=== PATIENT | female | born 1975 | race Hispanic/Latino ===

== ENCOUNTER 2019-08-29 15:06 | Emergency (ER) | payer SELFPAY ==
[2019-08-29] MEDS ORDERED: MORPHINE 4 MG/ML SYR ONE (15:42)
[2019-08-29] MEDS ORDERED: NA CHLORIDE 0.9% 1,000 ML ONE (15:42)
[2019-08-29] MEDS ORDERED: ONDANSETRON 4 MG/2 ML VIAL ONE (15:42)
[2019-08-29 16:00] LABS: Absolute Lymphocytes (CBC) 2.3 K/uL (0.7-4.9); Basophils % 0.4 % (0-1.3); Hematocrit 40.4 % (36.0-45.0); Lymphocytes % 18.6 % (15.3-44.8); MPV 8.2 fL (7.6-11.3); RBC Red Blood Cell Count 4.22 M/uL (3.86-4.86)
[2019-08-29 16:12] LABS: Urine Blood 1+ (NEG); Urine Glucose NEGATIVE (NEG); Urine Protein 2+ (NEG); Urine Specific Gravity >1.030 (1.005-1.030)
[2019-08-29 16:12] LABS: Potassium 3.5 mmol/L (3.5-5.1)
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
[2019-08-29] MEDS ORDERED: CYCLOBENZAPRINE 10 MG TAB ONE (17:53)
[2019-08-29] MEDS ORDERED: KETOROLAC 30 MG/ML INJ ONE (17:53)
[2019-08-29 18:22] VITALS: BP 139/79; TEMP 98.6; O2SAT 97
== END 2019-08-29 18:14 | disposition home or self-care (01) ==
LOC: ER 15:06
DX: S16.1XXA Strain of muscle, fascia and tendon at neck level, initial encounter (principal); S20.212A Contusion of left front wall of thorax, initial encounter; Y04.2XXA Assault by strike against or bumped into by another person, initial encounter; Y93.9 Activity, unspecified; Y92.9 Unspecified place or not applicable; F17.210 Nicotine dependence, cigarettes, uncomplicated
CPT/HCPCS: 36415; 70450; 70486; 71260; 72125; 74177; 76377; 80048; 81003; 81025; 85025; 96374; 96375; 99284; J2405; J7030; Q9967

== ENCOUNTER 2019-09-04 06:47 | Emergency (ER) | payer SELFPAY ==
[2019-09-04] MEDS ORDERED: IBUPROFEN 400 MG TAB ONE (08:26)
[2019-09-04] MEDS ORDERED: IBUPROFEN 200 MG TAB PO ONE (08:26)
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
--- NOTE | 2019-09-04 08:57 | RAD REPORT ---
EXAM DESCRIPTION: Shoulder Right 2 View - 09/04/2019 8:33 am CLINICAL HISTORY: PAIN COMPARISON: No comparisons TECHNIQUE: Internal and external rotation views of the right shoulder were obtained. FINDINGS: There is no fracture or dislocation. No AC joint separation. There is a minimal inferiorl y directed spur off of the head of the clavicle. Acromial humeral joint space still within normal armando its. No abnormal soft tissue calcification or suspicious soft tissue finding. Scapula and upper ribca ge unremarkable. IMPRESSION: Negative two-view right shoulder examination for acute finding. Minimal spur projects from the inferior margin of the clavicle at the AC joint.
--- NOTE | 2019-09-04 08:58 | RAD REPORT ---
EXAM DESCRIPTION: RAD - Chest Single View - 09/04/2019 8:33 am CLINICAL HISTORY: CHEST PAIN, right shoulder pain COMPARISON: None TECHNIQUE: AP portable chest image was obtained 09/04/2019 8:33 am . FINDINGS: Lungs are clear. Heart and vasculature are normal. No measurable pleural effusion and no p neumothorax. No acute bone finding. Ribs are grossly normal but limited on single-view assessment. Mi nimal degenerative change at each AC joint. No acute aortic findings suspected. IMPRESSION: No acute cardiopulmonary process. Minimal degenerative change at each AC joint. No rib abnormality. Any clinical concerns for rib fract ure can be further addressed with dedicated imaging.
[2019-09-04 09:15] VITALS: BP 131/71; TEMP 98.5; O2SAT 99
== END 2019-09-04 08:59 | disposition home or self-care (01) ==
LOC: ER 06:47
DX: S40.011A Contusion of right shoulder, initial encounter (principal); R07.89 Other chest pain; Y04.2XXA Assault by strike against or bumped into by another person, initial encounter; Y93.9 Activity, unspecified; Y92.9 Unspecified place or not applicable; F17.210 Nicotine dependence, cigarettes, uncomplicated
CPT/HCPCS: 71045; 99283

== ENCOUNTER 2020-06-28 15:08 | Emergency (ER) | payer SELFPAY ==
[2020-06-28 16:26] LABS: Urine Blood 2+ (Negative); Urine Glucose Negative (Negative); Urine Protein Trace (Negative)
[2020-06-28] MEDS ORDERED: KETOROLAC 30 MG/ML INJ ONE (17:09)
[2020-06-28] MEDS ORDERED: MORPHINE 4 MG/ML SYR ONE (17:09)
[2020-06-28] MEDS ORDERED: ONDANSETRON 4 MG/2 ML VIAL ONE (17:09)
[2020-06-28] MEDS ORDERED: NA CHLORIDE 0.9% 1,000 ML ONE (17:11)
[2020-06-28] MEDS ORDERED: NACHLORIDE 0.45% 0 ML IV ONE (17:11)
[2020-06-28 17:13] LABS: Absolute Lymphocytes (CBC) 2.1 K/uL (0.7-4.9); Basophils % 0.2 % (0-1.3); Lymphocytes % 15.7 % (15.3-44.8); MPV 8.4 fL (7.6-11.3); RBC Red Blood Cell Count 4.28 M/uL (3.86-4.86)
[2020-06-28 17:22] LABS: BUN Blood Urea Nitrogen 9 mg/dL (7-18); Bicarbonate 24 mmol/L (21-32); Glucose Level 97 mg/dL (74-106); Potassium 3.7 mmol/L (3.5-5.1); Sodium Level 139 mmol/L (136-145)
--- NOTE | 2020-06-28 17:55 | RAD REPORT ---
EXAM DESCRIPTION: CT - Stone Protocol - 06/28/2020 5:24 pm CLINICAL HISTORY: Flank pain. FLANK PAIN COMPARISON: No comparisons TECHNIQUE: Axial images were obtained without oral or IV contrast. Lack of contrast limits solid org an and vascular assessment. The [id number] spans the entirety of the system partially obscuring uppermost abdomen and lung bases. Coronal reformatted images were obtained and reviewed. All CT scans are performed using dose optimization technique as appropriate and may include automated exposure control or mA/KV adjustment according to patient size. FINDINGS: The lower lung quinones are clear. Imaged portions of the liver and spleen show no suspicious findings on non-contrast imaging. The panc reas and adrenal glands are normal. No pathologic lymphadenopathy in the abdomen or pelvis. Small calcified stones are present in the calices of both kidneys. No hydronephrosis. No bowel obstruction, free air, free fluid or abscess. Normal appendix noted. No significant bony abnormality. IMPRESSION: Bilateral nephrolithiasis is present without hydronephrosis.
[2020-06-28 18:03] LABS: Urine Amorphous Sediment TRACE /HPF (NONE SEEN); Urine Bacteria 20-50 /HPF (<20); Urine Mucus 3+ /HPF (NONE SEEN)
--- NOTE | 2020-06-28 18:33 | EDPHYS ---
Physician Documentation [facility] Name: Estrella Marlow Age: 45 yrs Sex: Female : 1975 Arrival Date: 06/28/2020 Time: 15:10 Bed 19 Private MD: ED Physician Efra Beard HPI: 06/28 17:20 This 45 yrs old Female presents to ER via Ambulatory with complaints of kb Abdominal Pain - RLQ, Nausea. 17:20 The patient complains of pain in the right flank. The pain radiates to the abdomen. kb Onset: The symptoms/episode began/occurred suddenly, at 12:30. Modifying factors: The symptoms are alleviated by nothing. the symptoms are aggravated by nothing. Associated signs and symptoms: Pertinent positives: nausea, Pertinent negatives: diarrhea, dizziness, dysuria, fever, urinary frequency, headache, hematuria, pain radiating to the lower extremities, vomiting. Severity of pain: At its worst the pain was moderate severe in the emergency department the pain is unchanged. The patient has not experienced similar symptoms in the past. The patient has not recently seen a physician. 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 - Social history:: Smoking status: Patient reports the use of cigarette tobacco products, smokes one-half pack cigarettes per day. ROS: 17:18 Constitutional: Negative for fever, chills, and weight loss, Cardiovascular: Negative kb for chest pain, palpitations, and edema, Respiratory: Negative for shortness of breath, cough, wheezing, and pleuritic chest pain, MS/Extremity: Negative for injury and deformity, Skin: Negative for injury, rash, and discoloration, Neuro: Negative for headache, weakness, numbness, tingling, and seizure. 17:18 Abdomen/GI: Positive for abdominal pain, nausea. Exam: 17:19 Constitutional: This is a well developed, well nourished patient who is awake, alert, kb and in no acute distress. Head/Face: Normocephalic, atraumatic. Cardiovascular: Regular rate and rhythm with a normal S1 and S2. No gallops, murmurs, or rubs. No pulse deficits. Respiratory: Respirations even and unlabored. No increased work of breathing, no retractions or nasal flaring. Abdomen/GI: Soft, non-tender. No distention Skin: Warm, dry with normal turgor. Normal color. MS/ Extremity: Pulses equal, no cyanosis. Neurovascular intact. Full, normal range of motion. Neuro: Awake and alert, GCS 15, oriented to person, place, time, and situation. Moves all extremities. Normal gait. 17:19 Back: CVA tenderness, that is moderate, is noted on the right. Vital Signs: 15:40 BP 130 / 77; Pulse 108; Resp 16; Temp 98.5; Pulse Ox 100% on R/A; Weight 65.77 kg; iw Height 5 ft. 0 in. (152.40 cm); 15:40 Body Mass Index 28.32 (65.77 kg, 152.40 cm) iw MDM: 16:36 Patient medically screened. kb 17:18 Data reviewed: vital signs, nurses notes. Data interpreted: Pulse oximetry: on room air kb is 100 %. Interpretation: normal. 18:21 Counseling: I had a detailed discussion with the patient and/or guardian regarding: the kb historical points, exam findings, and any diagnostic results supporting the discharge/admit diagnosis, lab results, radiology results, the need for outpatient follow up, a family practitioner, to return to the emergency department if symptoms worsen or persist or if there are any questions or concerns that arise at home. 06/28 16:25 Order name: Urine Dipstick-Ancillary; Complete Time: 16:36 EDMS 06/28 16:30 Order name: Urine --Ancillary (enter results); Complete Time: 17:42 bd 06/28 16:41 Order name: Basic Metabolic Panel; Complete Time: 17:23 kb 06/28 16:41 Order name: CBC with Diff; Complete Time: 17:15 kb 06/28 17:23 Order name: Urine Microscopic Only kb 06/28 17:24 Order name: Urine Microscopic Only; Complete Time: 18:11 EDMS 06/28 16:41 Order name: IV Saline Lock; Complete Time: 16:48 kb 04/20 16:41 Order name: Labs collected and sent; Complete Time: 16:48 kb 06/28 16:41 Order name: CT Stone Protocol; Complete Time: 17:58 kb 06/28 18:09 Order name: Urine Culture EDMS Administered Medications: 17:02 Drug: Zofran (Ondansetron) 4 mg Route: IVP; Site: right antecubital; hb 17:02 Drug: TORadol (ketorolac) 30 mg Route: IVP; Site: right antecubital; hb 17:03 Drug: morphine 4 mg Route: IVP; Site: right antecubital; hb 17:04 Drug: NS 0.9% 1000 ml Route: IV; Rate: 1000 ml; Site: right antecubital; hb Disposition: 18:56 Co-signature as Attending Physician, Efra Beard MD. rn Disposition: 06/28/20 18:33 Discharged to Home. Impression: Right Flank Pain. - Condition is Stable. - Discharge Instructions: Flank Pain, [id number]-[id number]. - Prescriptions for Augmentin 875- 125 mg Oral Tablet - take 1 tablet by ORAL route every 12 hours for 10 days; 20 tablet. Zofran 4 mg Oral Tablet - take 1 tablet by ORAL route every 6 hours As needed; 20 tablet. Diclofenac Sodium 75 mg Oral Tablet, Delayed Release (E.C.) - take 1 tablet by ORAL route 2 times per day As needed; 30 tablet. - Medication Reconciliation Form, Thank You Letter, Antibiotic Education, Prescription Opioid Use form. - Follow up: Emergency Department; When: As needed; Reason: Worsening of condition. Follow up: Private Physician; When: 2 - 3 days; Reason: Recheck today's complaints, Continuance of care, Re-evaluation by your physician. Signatures: Dispatcher [employer] EDVT Danita Lawton, VICENTE-C ONLINE MARKETING MANAGER-Soila Lynne RN RN iw Nieto, Roman, MD MD rn Baxter, Heather, RN RN Corrections: (The following items were deleted from the chart) 18:42 18:33 06/28/2020 18:33 Discharged to Home. Impression: Right Flank Pain. Condition is hb Stable. Forms are Medication Reconciliation Form, Thank You Letter, Antibiotic Education, Prescription Opioid Use. Follow up: Emergency Department; When: As needed; Reason: Worsening of condition. Follow up: Private Physician; When: 2 - 3 days; Reason: Recheck today's complaints, Continuance of care, Re-evaluation by your physician. kb 18:52 18:42 06/28/2020 18:33 Discharged to Home. Impression: Right Flank Pain. Condition is hb Stable. Discharge Instructions: Flank Pain, [id number]. Prescriptions for Augmentin 875-125 mg Oral Tablet - take 1 tablet by ORAL route every 12 hours for 10 days; 20 tablet, Zofran 4 mg Oral Tablet - take 1 tablet by ORAL route every 6 hours As needed; 20 tablet, Diclofenac Sodium 75 mg Oral Tablet, Delayed Release (E.C.) - take 1 tablet by ORAL route 2 times per day As needed; 30 tablet. and Forms are Medication Reconciliation Form, Thank You Letter, Antibiotic Education, Prescription Opioid Use. Follow up: Emergency Department; When: As needed; Reason: Worsening of condition. Follow up: Private Physician; When: 2 - 3 days; Reason: Recheck today's complaints, Continuance of care, Re-evaluation by your physician. hb
--- NOTE | 2020-06-28 18:33 | ER ---
Nurse's Notes [facility] Name: Estrella Marlow Age: 45 yrs Sex: Female : 1975 Arrival Date: 06/28/2020 Time: 15:10 Bed 19 Private MD: Diagnosis: Right Flank Pain Presentation: 06/28 15:40 Chief complaint: Patient states: around noon, felt a pain in right low back , when she iw stood up she got light headed and nauseous, pain now radiates to RLQ, no problems urinating, noticed a lump on right vulvar area. Coronavirus screen: At this time, the client does not indicate any symptoms associated with coronavirus-19. Ebola Screen: Patient negative for fever greater than or equal to 101.5 degrees Fahrenheit, and additional compatible Ebola Virus Disease symptoms Patient denies exposure to infectious person. Patient denies travel to an Ebola-affected area in the 21 days before illness onset. No symptoms or risks identified at this time. Initial Sepsis Screen: Does the patient meet any 2 criteria? No. Patient's initial sepsis screen is negative. Does the patient have a suspected source of infection? No. Patient's initial sepsis screen is negative. Risk Assessment: Do you want to hurt yourself or someone else? Patient reports no desire to harm self or others. Onset of symptoms was June 28, 2020. 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 - Social history:: Smoking status: Patient reports the use of cigarette tobacco products, smokes one-half pack cigarettes per day. Screenin:51 Abuse screen: Denies threats or abuse. Denies injuries from another. Nutritional hb screening: No deficits noted. Tuberculosis screening: No symptoms or risk factors identified. Fall Risk None identified. Assessment: 16:51 General: Appears in no apparent distress. Behavior is calm, cooperative. Pain: Pain hb currently is 8 out of 10 on a pain scale. Neuro: Level of Consciousness is awake, alert, obeys commands, Oriented to person, place, time, situation. Cardiovascular: Patient's skin is warm and dry. Respiratory: Respiratory effort is even, unlabored, Respiratory pattern is regular, symmetrical. GI: Reports lower abdominal pain, nausea. : No signs and/or symptoms were reported regarding the genitourinary system. EENT: No signs and/or symptoms were reported regarding the EENT system. Derm: Skin is pink, warm \T\ dry. Musculoskeletal: No signs and/or symptoms reported regarding the musculoskeletal system. 17:35 Reassessment: Patient appears in no apparent distress at this time. Patient and/or hb family updated on plan of care and expected duration. Pain level reassessed. Patient is alert, oriented x 3, equal unlabored respirations, skin warm/dry/pink. Vital Signs: 15:40 BP 130 / 77; Pulse 108; Resp 16; Temp 98.5; Pulse Ox 100% on R/A; Weight 65.77 kg; iw Height 5 ft. 0 in. (152.40 cm); 15:40 Body Mass Index 28.32 (65.77 kg, 152.40 cm) iw ED Course: 15:10 Patient arrived in ED. am2 15:41 Triage completed. iw 16:36 Danita Lawton FNP-C is PHCP. kb 16:36 Efra Beard MD is Attending Physician. kb 16:48 Justine Wilkes, XOCHITL is Primary Nurse. hb 16:49 Inserted saline lock: 20 gauge 24 gauge antecubital area, using aseptic technique. hb ,using aseptic technique. by [employer] Blood collected. 16:52 Arm band placed on. hb 16:52 Patient has correct armband on for positive identification. Call light in reach. Side hb rails up X 1. 17:13 Basic Metabolic Panel Sent. tr6 17:13 CBC with Diff Sent. tr6 17:13 Urine --Ancillary (enter results) Sent. tr6 17:24 CT Stone Protocol In Process Unspecified. EDMS 18:42 No provider procedures requiring assistance completed. IV discontinued, intact, hb bleeding controlled, No redness/swelling at site. Pressure dressing applied. Administered Medications: 17:02 Drug: Zofran (Ondansetron) 4 mg Route: IVP; Site: right antecubital; hb 17:02 Drug: TORadol (ketorolac) 30 mg Route: IVP; Site: right antecubital; hb 17:03 Drug: morphine 4 mg Route: IVP; Site: right antecubital; hb 17:04 Drug: NS 0.9% 1000 ml Route: IV; Rate: 1000 ml; Site: right antecubital; hb Outcome: 18:33 Discharge ordered by MD. moralez 18:42 Patient left the ED. hb 18:45 Discharged to home ambulatory. tr6 18:45 Condition: good 18:45 Discharge instructions given to patient, Instructed on discharge instructions, follow up and referral plans. medication usage, safety practices, Demonstrated understanding of instructions, follow-up care, medications, Prescriptions given X Following a medical screening exam, the patient was provided information regarding alternative care sites and resources available per registration personnel. 18:52 Patient left the ED. Signatures: Dispatcher [employer] EDMS Danita Lawton, ABSTRACT CLERK-C ABSTRACT CLERK-CkSoila Rutledge RN RN Justine Wilkes RN RN Pia Vigil Tiffany RN RN tr6 Corrections: (The following items were deleted from the chart) 15:42 15:40 Chief complaint: Patient states: around noon, felt a pain in right low back , iw when she stood up she got light headed and nauseous, pain now radiates to RLQ, no problems urinating iw
[2020-06-28 19:18] VITALS: BP 130/77; TEMP 98.5; O2SAT 100
== END 2020-06-28 18:52 | disposition home or self-care (01) ==
LOC: ER 15:08
DX: R10.9 Unspecified abdominal pain (principal); F17.210 Nicotine dependence, cigarettes, uncomplicated
CPT/HCPCS: 36415; 74176; 76377; 80048; 81003; 81015; 81025; 85025; 87086; 87088; 96374; 96375; 99284; J2405; J7030

== ENCOUNTER 2021-12-02 19:42 | Emergency (ER) | payer SELFPAY ==
[2021-12-02] MEDS ORDERED: SMZ./TMP. 800/160 MG TABLET ONE (20:31)
[2021-12-02] MEDS ORDERED: LIDOCAINE 1% MPF 5 ML VIAL ONE (20:31)
--- NOTE | 2021-12-02 20:41 | ER ---
Nurse's Notes [facility] Name: Estrella Marlow Age: 46 yrs Sex: Female : 1975 Arrival Date: 12/02/2021 Time: 19:49 Bed Treatment Private MD: Diagnosis: Cutaneous abscess of groin Presentation: 12/02 19:51 Chief complaint: Left groin abscess x 3 weeks. Coronavirus screen: At this time, the client does not indicate any symptoms associated with coronavirus-19. Ebola Screen: No symptoms or risks identified at this time. Risk Assessment: Do you want to hurt yourself or someone else? Patient reports no desire to harm self or others. Onset of symptoms was November 11, 2021. 19:51 Method Of Arrival: Ambulatory 19:51 Acuity: RACQUEL 4 21:11 Initial Sepsis Screen: Does the patient meet any 2 criteria? No. Patient's initial kb3 sepsis screen is negative. Does the patient have a suspected source of infection? Yes: Skin breakdown/wound. Triage Assessment: 20:15 General: Appears in no apparent distress. uncomfortable, Behavior is calm, cooperative. 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 - Social history:: Smoking status: Patient denies any tobacco usage or history of. Screenin:00 Abuse screen: Denies threats or abuse. Denies injuries from another. Nutritional kb3 screening: No deficits noted. Tuberculosis screening: No symptoms or risk factors identified. Fall Risk None identified. Assessment: 20:15 General: Received care of pt from [facility]. Pt reports abscess in left groin x3 weeks kb3 after shaving. . 20:15 Pain: Complains of pain in left femoral area Pain radiates to groin Pain currently is kb3 10 out of 10 on a pain scale. Quality of pain is described as burning, pressure, sharp, stinging, Pain began 3 weeks ago Is continuous. Derm: Abscess located on groin and left femoral area. Vital Signs: 19:51 BP 140 / 80; Pulse 97; Resp 16; Temp 98.4; Pulse Ox 100% on R/A; Weight 65.77 kg; hb Height 5 ft. (152.40 cm); Pain 7/10; 21:00 BP 135 / 78; Pulse 90; Resp 20; Pulse Ox 100% ; kb3 19:51 Body Mass Index 28.32 (65.77 kg, 152.40 cm) hb ED Course: 19:49 Patient arrived in ED. hb 19:53 Triage completed. hb 19:53 Arm band placed on. hb 19:56 Danita Lawton FNP-C is [facility]. kb 19:56 Riana Pearce MD is Attending Physician. kb 20:09 Grace King, XOCHITL is Primary Nurse. kb3 20:15 Patient has correct armband on for positive identification. Placed in gown. Bed in low kb3 position. Call light in reach. 20:15 Warm blanket given. kb3 20:15 Assist provider with I \T\ D: of an abscess on left groin Set up I\T\D tray. Performed by kb 3 Danita CARPENTER Dressing with 4X4s, tape. Patient did not have IV access during this emergency room visit. Administered Medications: 20:20 Drug: Bactrim (trimethoprim-sulfamethoxazole) (160 mg-800 mg (DS) 1 tablet Route: PO; kb3 21:11 Follow up: Response: No adverse reaction kb3 20:45 Drug: Lidocaine (1 %) 1 vials {Note: Administered by Danita gonzáles I\T\D procedure.} kb3 Volume: 5 ml; Route: Infiltration; 21:12 Follow up: Response: No adverse reaction kb3 Medication: 21:00 VIS not applicable for this client. kb3 Outcome: 20:40 Discharge ordered by . kb 21:00 Discharged to home ambulatory, with friend. kb3 21:00 Condition: stable kb3 21:00 Discharge instructions given to patient, friend, Instructed on discharge instructions, follow up and referral plans. medication usage, Demonstrated understanding of instructions, follow-up care, medications, Prescriptions given X 1. 21:12 Patient left the ED. kb3 Signatures: Danita Lawton FNP-C FNP-Justine Sher RN RN Grace King, XOCHITL RN kb3 Corrections: (The following items were deleted from the chart) 19:53 19:53 Allergies: Aspirin; hb hb 21:07 21:02 General: Received care of pt from lobby. Pt reports abscess in left groin x3 kb3 weeks after shaving.. kb3
--- NOTE | 2021-12-02 20:41 | EDPHYS ---
Physician Documentation [facility] Name: Estrella Marlow Age: 46 yrs Sex: Female : 1975 Arrival Date: 12/02/2021 Time: 19:49 Bed Treatment Private MD: ED Physician Riana Pearce HPI: 12/02 20:42 This 46 yrs old Female presents to ER via Ambulatory with complaints of kb Abscess. 20:42 The patient presents with an abscess of the left femoral area. Description: draining, kb erythematous, swollen, warm. Onset: The symptoms/episode began/occurred 3 week(s) ago. Possible cause(s): unknown. Associated signs and symptoms: Pertinent positives: drainage, erythema, swelling. Modifying factors: the symptoms are alleviated by nothing, the symptoms are aggravated by nothing. Severity of symptoms: At their worst the symptoms were mild, in the emergency department the symptoms are unchanged. The patient has experienced similar episodes in the past, a few times. The patient has not recently seen a physician. 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 - Social history:: Smoking status: Patient denies any tobacco usage or history of. ROS: 20:42 Constitutional: Negative for fever, chills, and weight loss. kb 20:42 Skin: Positive for abscess, of the left femoral area. 20:42 All other systems are negative. Exam: 20:42 Constitutional: This is a well developed, well nourished patient who is awake, alert, kb and in no acute distress. Head/Face: Normocephalic, atraumatic. ENT: Moist Mucous membranes Cardiovascular: Regular rate and rhythm with a normal S1 and S2. No gallops, murmurs, or rubs. No pulse deficits. Respiratory: Respirations even and unlabored. No increased work of breathing. Talking in full sentences MS/ Extremity: Pulses equal, no cyanosis. Neurovascular intact. Full, normal range of motion. Neuro: Awake and alert, GCS 15, oriented to person, place, time, and situation. Moves all extremities. Normal gait. Psych: Awake, alert, with orientation to person, place and time. Behavior, mood, and affect are within normal limits. 20:42 Skin: abscess, that is small, of the left femoral area, with drainage, with fluctuance, with induration, with surrounding cellulitis. Vital Signs: 19:51 BP 140 / 80; Pulse 97; Resp 16; Temp 98.4; Pulse Ox 100% on R/A; Weight 65.77 kg; hb Height 5 ft. (152.40 cm); Pain 7/10; 21:00 BP 135 / 78; Pulse 90; Resp 20; Pulse Ox 100% ; kb3 19:51 Body Mass Index 28.32 (65.77 kg, 152.40 cm) hb Procedures: 20:41 I \T\ D: Incision and drainage was performed for an abscess of the left left femoral area kb Prepped with Betadine, Anesthetized with 2 ml's 1% Lidocaine. Incised with #11 blade. Drained small amount Dressing: sterile 4x4 gauze, the patient tolerated the procedure well. MDM: 19:59 Patient medically screened. kb 20:41 Data reviewed: vital signs, nurses notes. Data interpreted: Pulse oximetry: on room air kb is 100 %. Interpretation: normal. Counseling: I had a detailed discussion with the patient and/or guardian regarding: the historical points, exam findings, and any diagnostic results supporting the discharge/admit diagnosis, the need for outpatient follow up, a family practitioner, to return to the emergency department if symptoms worsen or persist or if there are any questions or concerns that arise at home. 12/02 20:14 Order name: I\T\D Setup; Complete Time: 20:41 kb Administered Medications: 20:20 Drug: Bactrim (trimethoprim-sulfamethoxazole) (160 mg-800 mg (DS) 1 tablet Route: PO; kb3 21:11 Follow up: Response: No adverse reaction kb3 20:45 Drug: Lidocaine (1 %) 1 vials {Note: Administered by Danita gonzáles I\T\D procedure.} kb3 Volume: 5 ml; Route: Infiltration; 21:12 Follow up: Response: No adverse reaction kb3 Disposition: 12/03 20:55 STAFF ATTESTATION STATEMENT: I was immediately available onsite in the emergency sd2 department for consultation in the care of this patient. I did not see or examine this patient. Riana Pearce MD. Disposition Summary: 12/02/21 20:40 Discharge Ordered Location: Home kb Condition: Stable kb Diagnosis - Cutaneous abscess of groin kb Followup: kb - With: Emergency Department - When: As needed - Reason: Worsening of condition Followup: kb - With: Private Physician - When: 2 - 3 days - Reason: Recheck today's complaints, Continuance of care, Re-evaluation by your physician Discharge Instructions: - Discharge Summary Sheet kb - Skin Abscess, [id number] kb - Incision and Drainage, Care After kb Forms: - Medication Reconciliation Form kb - Thank You Letter kb - Antibiotic Education kb - Prescription Opioid Use kb Prescriptions: - Bactrim DS 800-160 mg Oral Tablet - take 1 tablet by ORAL route every 12 hours for 10 days; 20 tablet; Refills: 0, kb Product Selection Permitted Signatures: Danita Lawton, CUFF MATCHER-C CUFF MATCHER-Ckb Justine Wilkes, RN RN Riana Browning MD MD sd2 Grace King, RN RN kb3 Corrections: (The following items were deleted from the chart) 12/02 19:53 19:53 Allergies: Aspirin; hb hb
[2021-12-04 07:23] VITALS: BP 135/78; O2SAT 100
[2021-12-04 07:33] VITALS: TEMP 98.4
== END 2021-12-02 21:12 | disposition home or self-care (01) ==
LOC: ER 19:42
PROC: 0H9AXZZ Drainage of Inguinal Skin, External Approach (ICD-10-PCS; principal; 2021-12-02)
DX: L02.214 Cutaneous abscess of groin (principal)
CPT/HCPCS: 99283; J2001

== ENCOUNTER 2023-06-15 09:25 | Emergency (ER) | payer SELFPAY ==
[2023-06-15] MEDS ORDERED: ONDANSETRON 4 MG/2 ML VIAL ONE (09:53)
[2023-06-15] MEDS ORDERED: NA CHLORIDE 0.9% 1,000 ML ONE (09:53)
[2023-06-15] MEDS ORDERED: KETOROLAC 30 MG/ML INJ ONE (09:53)
[2023-06-15 10:03] LABS: Absolute Eosinophils 0.1 K/uL (0-0.5); Absolute Lymphocytes (CBC) 1.4 K/uL (0.7-4.9); Absolute Monocytes 0.6 K/uL (0.1-1.3); Absolute Neutrophil 10.4 K/uL (1.8-8.0); Basophils % 0.3 % (0-1.3); Eosinophils % 0.7 % (0-4.4); Hematocrit 39.7 % (36.0-45.0); Hemoglobin 13.6 g/dL (12.0-15.0); Lymphocytes % 11.3 % (15.3-44.8); MCH 31.9 pg (27.0-35.0); MCHC 34.2 g/dL (32.0-36.0); MCV 93.4 fL (80-100); MPV 8.1 fL (7.6-11.3); Monocytes % 4.8 % (3.3-12.3); Neutrophils % 82.9 % (41.7-73.7); Platelets 345 thou/uL (152-406); RBC Red Blood Cell Count 4.25 M/uL (3.86-4.86); Red Cell Distribution Width 12.8 % (12.1-15.2)
[2023-06-15] MEDS ORDERED: MORPHINE 4 MG/ML SYR ONE (10:12)
[2023-06-15 10:13] LABS: Albumin 3.6 g/dL (3.4-5.0); Albumin/Globulin Ratio 1.1 (1.1-1.8); Anion Gap 7.9 mEq/L (5.0-15.0); Bilirubin Total 0.4 mg/dL (0.2-1.0); Globulin 3.4 g/dL (2.3-3.5); Potassium 3.9 mEq/L (3.5-5.1)
--- NOTE | 2023-06-15 11:17 | RAD REPORT ---
EXAM DESCRIPTION: CTStone Protocol - 06/15/2023 11:07 am CLINICAL HISTORY: FLANK PAIN COMPARISON: Stone Protocol dated 06/28/2020 TECHNIQUE: CT of the abdomen and pelvis was performed. All CT scans are performed using dose optimization technique as appropriate and may include automated exposure control or mA/KV adjustment according to patient size. FINDINGS: Lower chest: No acute abnormality. Liver: No acute abnormality or suspicious lesions. Biliary: No biliary ductal dilatation. Stomach: No significant focal abnormality. Duodenum: No significant focal abnormality. Pancreas: No significant abnormality. Spleen: No significant abnormality. Adrenal: No suspicious lesions. Kidney/ureter: Bilateral nephrolithiasis. Mild left-sided hydronephrosis secondary to a 7 mm stone in the left proximal ureter. An adjacent 2 mm stone is present. A 10 mm stone is present in the upper p ole right kidney. No right-sided hydronephrosis. Retroperitoneum: No retroperitoneal adenopathy. Vascular: No aneurysm. Atherosclerosis. Bowel: No significant focal abnormality. Normal appendix. Peritoneum: Small volume of pleural free fluid which is likely physiologic. Bladder: Grossly unremarkable. Reproductive: No adnexal masses. Bones: No acute fracture. Other: n/a IMPRESSION: Mild left-sided hydronephrosis secondary to an 7 mm stone in the left proximal ureter.
[2023-06-15] MEDS ORDERED: TAMSULOSIN 0.4 MG SR CAP ONE (11:40)
[2023-06-15] MEDS ORDERED: MAGNESIUM SULFATE 1 gm IVPB 1 GM/100 ML BAG IV ONE (11:41)
[2023-06-15 12:29] LABS: Specific Gravity 1.018 (1.005-1.030)
[2023-06-15 12:35] LABS: Specific Gravity 1.018 (1.005-1.030); Urine Bacteria None Seen /HPF (<20); Urine Bilirubin NEGATIVE (Negative); Urine Blood 3+ (Negative); Urine Clarity Extremely Turbid (Clear); Urine Color Light-Yellow (Yellow); Urine Culture Reflex Order NOT NEEDED; Urine Glucose NEGATIVE (Negative); Urine Ketones 1+ (Negative); Urine Microscopic Reflex YN ORDER UMIC; Urine Mucus 1+ /HPF (None Seen); Urine Nitrite NEGATIVE (Negative); Urine Protein TRACE (Negative); Urine RBC >50 /HPF (None Seen); Urine Urobilinogen Normal (Normal); Urine Yeast (Budding) Trace /HPF (None Seen); Urine pH 6.5 (5.0-7.0)
--- NOTE | 2023-06-15 13:12 | EDPHYS ---
Physician Documentation [facility] Name: Estrella Marlow Age: 48 yrs Sex: Female : 1975 Arrival Date: 06/15/2023 Time: 09:25 Bed 5 Private MD: ED Physician Eric Alvarez HPI: 06/14 09:40 This 48 yrs old Female presents to ER via Ambulatory with complaints of Low kb Back Pain, Nausea/Vomiting. 09:40 Pt is a 48 year old female who presents for low back pain that started yesterday and kb has gotten worse. Reports pain radiates to abd on both sides. Reports nausea, diarrhea and urinating small amounts. Denies fever, vomiting. . Historical: - Allergies: 09:36 No Known Allergies; nj1 - PMHx: 10:01 Kidney stone; aa5 - PSHx: 09:36 None; nj1 - Immunization history:: Client reports receiving the 2nd dose of the Covid vaccine. - Infectious Disease History:: Denies. - Social history:: Smoking status: Patient reports the use of cigarette tobacco products, smokes one-half pack cigarettes per day. ROS: 09:38 Constitutional: As per HPI kb Exam: 09:38 Constitutional: This is a well developed, well nourished patient who is awake, alert, kb and in no acute distress. Head/Face: Normocephalic, atraumatic. ENT: Moist Mucous membranes Cardiovascular: Regular rate Respiratory: Respirations even and unlabored. No increased work of breathing. Talking in full sentences Skin: Warm, dry with normal turgor. Normal color. MS/ Extremity: Pulses equal, no cyanosis. Neurovascular intact. Full, normal range of motion. Neuro: Awake and alert, GCS 15, oriented to person, place, time, and situation. Moves all extremities. Normal gait. 09:38 Abdomen/GI: Inspection: abdomen appears normal, Bowel sounds: normal, in all quadrants, Palpation: soft, mild abdominal tenderness, in the right lower quadrant and left lower quadrant, 09:38 Back: pain, that is moderate, of the low back area, ROM is normal, Vital Signs: 09:28 BP 150 / 78; Pulse 85; Resp 18; Temp 97.7(O); Pulse Ox 99% on R/A; Weight 68.04 kg; nj1 Height 5 ft. 0 in. ; Pain 8/10; 10:40 BP 138 / 77; Pulse 68; Resp 16 S; Pulse Ox 98% on R/A; aa5 09:28 Body Mass Index 29.29 (68.04 kg, 152.4 cm) nj1 09:28 Pain Scale: Adult nj1 MDM: 09:27 Patient medically screened. kb 09:38 Differential diagnosis: UTI, kidney stone, gastroenteritis. Data reviewed: vital signs, kb nurses notes. 13:11 Counseling: I had a detailed discussion with the patient and/or guardian regarding the kb historical points, exam findings, and any diagnostic results supporting the discharge/admit diagnosis, lab results, radiology results, the need for outpatient follow up, a family practitioner, a urologist, to return to the emergency department if symptoms worsen or persist or if there are any questions or concerns that arise at home. ED course: Symptoms improved after treatment. Pt is ready to go home. 06/14 09:31 Order name: CBC with Diff; Complete Time: 10:21 kb 06/14 09:31 Order name: CMP; Complete Time: 10:21 kb 06/14 09:31 Order name: Lipase; Complete Time: 10:21 kb 06/14 09:31 Order name: Test, Urine; Complete Time: 12:30 kb 06/14 09:31 Order name: Urinalysis w/ reflexes; Complete Time: 12:36 kb 06/14 09:31 Order name: CT Stone Protocol; Complete Time: 11:20 kb 06/14 09:31 Order name: IV Saline Lock; Complete Time: 10:00 kb 06/14 09:31 Order name: Labs collected and sent; Complete Time: 10:00 kb Administered Medications: 09:57 Drug: Ondansetron IVP 4 mg IVP once; over 2 minutes Route: IVP; Site: right antecubital;aa5 10:15 Follow up: Response: No adverse reaction aa5 09:59 Drug: TORadol - Ketorolac IVP 15 mg IVP once Route: IVP; Site: right antecubital; aa5 10:15 Follow up: Response: No adverse reaction; Pain is unchanged, physician notified aa5 10:00 Drug: NS 0.9% IV 1000 ml IV at 1 bolus Per protocol; 1000 mL bolus Route: IV; Rate: 1 aa5 bolus; Site: right antecubital; 11:48 Follow up: IV Status: Completed infusion; IV Intake: 1000ml aa5 10:20 Drug: morphine IVP or IV 4 mg IVP once over 4 mins Route: IVP; Infused Over: 4 mins; aa5 Site: right antecubital; 10:40 Follow up: Response: No adverse reaction; Marked relief of symptoms; Pain is decreased aa5 11:48 Drug: Magnesium Sulfate IVPB 1 grams IVPB once over 30 mins Route: IVPB; Infused Over: aa5 30 mins; Site: right antecubital; 13:00 Follow up: Response: No adverse reaction; IV Status: Completed infusion aa5 11:48 Drug: Flomax PO 0.4 mg PO once Route: PO; aa5 13:00 Follow up: Response: No adverse reaction aa5 Disposition Summary: 06/15/23 13:11 Discharge Ordered Notes: Location: Home kb Condition: Stable kb Diagnosis - Calculus of kidney with calculus of ureter kb Followup: kb - With: Emergency Department - When: As needed - Reason: Worsening of condition Followup: kb - With: Private Physician - When: 2 - 3 days - Reason: Recheck today's complaints, Continuance of care, Re-evaluation by your physician Discharge Instructions: - Discharge Summary Sheet kb - Kidney Stones, [id number] kb - Dietary Guidelines to Help Prevent Kidney Stones kb Forms: - Medication Reconciliation Form kb - Thank You Letter kb - Antibiotic Education kb - Prescription Opioid Use kb - Patient Portal Instructions kb - Leadership Thank You Letter kb Prescriptions: - Flomax 0.4 mg Oral capsule - take 1 capsule ORAL route daily; 10 capsule; Refills: 0, Product Selection kb Permitted - Augmentin 875-125 mg Oral Tablet - take 1 tablet ORAL route every 12 hours for 10 days; 20 tablet; Refills: 0, kb Product Selection Permitted - Zofran 4 mg Oral tablet - take 1 tablet ORAL route every 6 hours As needed; 12 tablet; Refills: 0, kb Product Selection Permitted - Diclofenac Sodium 75 mg Oral tablet, delayed release (enteric coated) - take 1 tablet ORAL route 2 times per day As needed; 30 tablet; Refills: 0, kb Product Selection Permitted - Tramadol 50 mg Oral Tablet - take 1 tablet ORAL route every 8 hours as needed; 12 tablet; Refills: 0, kb Product Selection Permitted Signatures: Dispatcher [employer] EDMS Danita Lawton, ASSISTANT CASE MANAGER-C ASSISTANT CASE MANAGER-Ckb Karla Allred, RN RN aa5 Lin Nunez RN RN nj1 Corrections: (The following items were deleted from the chart) 09:32 09:32 CBC+H.LAB.BRZ ordered. EDMS EDMS 09:32 09:32 COMPREHENSIVE METABOLIC PANEL+C.LAB.BRZ ordered. EDMS EDMS :32 09:32 LIPASE+C.LAB.BRZ ordered. EDMS EDMS :32 09:32 Test, Urine+UC.LAB.BRZ ordered. EDMS EDMS :32 09:32 Urinalysis+U.LAB.BRZ ordered. EDMS EDMS 10:01 09:36 PMHx: None; nj1 aa5
--- NOTE | 2023-06-15 13:12 | ER ---
Nurse's Notes [facility] Name: Estrella Marlow Age: 48 yrs Sex: Female : 1975 Arrival Date: 06/15/2023 Time: 09:25 Bed 5 Private MD: Diagnosis: Calculus of kidney with calculus of ureter Presentation: 06/14 09:28 Chief complaint: Patient states: Lower abdominal pain as well as low back pain since nj1 yesterday, has worsen since. Had one episode of diarrhea, currently nauseous. 09:28 Coronavirus screen: Vaccine status: Patient reports receiving the 2nd dose of the covid nj1 vaccine. Ebola Screen: Patient denies travel to an Ebola-affected area in the 21 days before illness onset. Initial Sepsis Screen: Does the patient meet any 2 criteria? No. Patient's initial sepsis screen is negative. Does the patient have a suspected source of infection? No. Patient's initial sepsis screen is negative. Risk Assessment: Do you want to hurt yourself or someone else? Patient reports no desire to harm self or others. Onset of symptoms was June 14, 2023. 09:28 Method Of Arrival: Ambulatory [facility] 09:28 Acuity: RACQUEL 3 nj1 Historical: - Allergies: 09:36 No Known Allergies; nj1 - PMHx: 10:01 Kidney stone; aa5 - PSHx: 09:36 None; nj1 - Immunization history:: Client reports receiving the 2nd dose of the Covid vaccine. - Infectious Disease History:: Denies. - Social history:: Smoking status: Patient reports the use of cigarette tobacco products, smokes one-half pack cigarettes per day. Screenin:40 [facility] ED Fall Risk Assessment (Adult) History of falling in the last 3 months, aa5 including since admission No falls in past 3 months (0 pts) Confusion or Disorientation No (0 pts) Intoxicated or Sedated No (0 pts) Impaired Gait No (0 pts) Mobility Assist Device Used No (0 pt) Altered Elimination No (0 pt) Score/Fall Risk Level 0 - 2 = Low Risk Oriented to surroundings, Maintained a safe environment, Educated pt \T\ family on fall prevention, incl call for assistance when getting out of bed. Abuse screen: Denies threats or abuse. Nutritional screening: No deficits noted. Tuberculosis screening: No symptoms or risk factors identified. Assessment: 09:40 General: Appears uncomfortable, Behavior is calm, cooperative. Pain: Complains of pain aa5 in low back area and left lower quadrant and right lower quadrant Pain currently is 8 out of 10 on a pain scale. Quality of pain is described as sharp, Is continuous. Neuro: Level of Consciousness is awake, alert, obeys commands, Oriented to person, place, time, situation. Cardiovascular: Patient's skin is warm and dry. Respiratory: Airway is patent Respiratory effort is even, unlabored, Respiratory pattern is regular, symmetrical. GI: Abdomen is round non-distended, Bowel sounds present X 4 quads. Abd is soft X 4 quads Reports diarrhea, nausea. : Denies burning with urination. EENT: No signs and/or symptoms were reported regarding the EENT system. Derm: Skin is dry, Skin is normal, Skin temperature is warm. Musculoskeletal: Range of motion: intact in all extremities. 10:19 Reassessment: Patient states symptoms have not improved. Pt states pain has not aa5 improved, PLANT SENIOR MANAGER was notified. . General: Appears uncomfortable. 10:40 Reassessment: Patient states feeling better. Patient states symptoms have improved. aa5 General: Appears comfortable. Neuro: Level of Consciousness is awake, alert, obeys commands, Oriented to person, place, time, situation. Respiratory: Airway is patent Respiratory effort is even, unlabored, Respiratory pattern is regular, symmetrical. Derm: Skin is dry, Skin is normal, Skin temperature is warm. 11:10 Reassessment: Pt back from CT scan, appears comfortable. States no complaints at this aa5 time. . 13:00 General: Appears comfortable. Neuro: Level of Consciousness is awake, alert, obeys aa5 commands, Oriented to person, place, time, situation. Respiratory: Airway is patent Respiratory effort is even, unlabored, Respiratory pattern is regular, symmetrical. Derm: Skin is dry, Skin is normal, Skin temperature is warm. 13:40 General: Appears comfortable. Neuro: Level of Consciousness is awake, alert, obeys aa5 commands, Oriented to person, place, time, situation. Respiratory: Airway is patent Respiratory effort is even, unlabored, Respiratory pattern is regular, symmetrical. Derm: Skin is dry, Skin is normal, Skin temperature is warm. Vital Signs: 09:28 BP 150 / 78; Pulse 85; Resp 18; Temp 97.7(O); Pulse Ox 99% on R/A; Weight 68.04 kg; nj1 Height 5 ft. 0 in. ; Pain 8/10; 10:40 BP 138 / 77; Pulse 68; Resp 16 S; Pulse Ox 98% on R/A; aa5 09:28 Body Mass Index 29.29 (68.04 kg, 152.4 cm) nj1 09:28 Pain Scale: Adult [facility] ED Course: 09:27 Patient arrived in ED. rg4 09:27 Danita Lawton, PAULINE is PHCP. kb 09:27 Eric Alvarez MD is Attending Physician. kb 09:31 Karla Allred, XOCHITL is Primary Nurse. aa5 09:36 Triage completed. nj1 09:36 Arm band placed on right wrist. nj1 09:37 Radiology exam delayed due to test not completed at this time. vm2 09:39 Patient has correct armband on for positive identification. Placed in gown. Bed in low nj1 position. Call light in reach. 09:54 Initial lab(s) drawn, by me, sent to lab. Inserted saline lock: 20 gauge in right aa5 antecubital area, using aseptic technique. Blood collected. 10:15 Radiology exam delayed due to test not completed at this time. vm2 11:09 CT Stone Protocol In Process Unspecified. EDMS 12:35 Urinalysis w/ reflexes Sent. hb 12:35 Urine collected: clean catch specimen, clear. hb 13:40 No provider procedures requiring assistance completed. IV discontinued, intact, aa5 bleeding controlled, No redness/swelling at site. Pressure dressing applied. Administered Medications: 09:57 Drug: Ondansetron IVP 4 mg IVP once; over 2 minutes Route: IVP; Site: right antecubital;aa5 10:15 Follow up: Response: No adverse reaction aa5 09:59 Drug: TORadol - Ketorolac IVP 15 mg IVP once Route: IVP; Site: right antecubital; aa5 10:15 Follow up: Response: No adverse reaction; Pain is unchanged, physician notified aa5 10:00 Drug: NS 0.9% IV 1000 ml IV at 1 bolus Per protocol; 1000 mL bolus Route: IV; Rate: 1 aa5 bolus; Site: right antecubital; 11:48 Follow up: IV Status: Completed infusion; IV Intake: 1000ml aa5 10:20 Drug: morphine IVP or IV 4 mg IVP once over 4 mins Route: IVP; Infused Over: 4 mins; aa5 Site: right antecubital; 10:40 Follow up: Response: No adverse reaction; Marked relief of symptoms; Pain is decreased aa5 11:48 Drug: Magnesium Sulfate IVPB 1 grams IVPB once over 30 mins Route: IVPB; Infused Over: aa5 30 mins; Site: right antecubital; 13:00 Follow up: Response: No adverse reaction; IV Status: Completed infusion aa5 11:48 Drug: Flomax PO 0.4 mg PO once Route: PO; aa5 13:00 Follow up: Response: No adverse reaction aa5 Medication: 13:00 VIS not applicable for this client. aa5 Intake: 11:48 IV: 1000ml; Total: 1000ml. aa5 Outcome: 13:11 Discharge ordered by MD. 13:40 Discharged to home ambulatory, aa5 13:40 Condition: improved 13:40 Discharge instructions given to patient, Instructed on discharge instructions, follow up and referral plans. medication usage, Demonstrated understanding of instructions, follow-up care, medications, Prescriptions given X 5 13:50 Patient left the ED. mc5 Signatures: Dispatcher [employer] EDMS Danita Lawton, PAULINE GAMING CAGE WORKER-Karla Arthur RN RN aa5 Justine Wilkes RN RN hb Garcia, Rubi 4 Renay Adams 2 Lin Nunez RN RN nj1 Samara Pedroza mc5 Corrections: (The following items were deleted from the chart) 10:01 09:36 PMHx: None; nj1 aa5 : 09:27 General: Appears uncomfortable, Behavior is calm, cooperative, aa5 aa5 : 09:27 Pain: Complains of pain in low back area and left lower quadrant and right lower aa5 quadrant Pain currently is 8 out of 10 on a pain scale. Quality of pain is described as sharp, Is continuous, aa5 10: 09:27 Neuro: Level of Consciousness is awake, alert, obeys commands, Oriented to aa5 person, place, time, situation, aa5 : 09:27 Cardiovascular: Patient's skin is warm and dry. aa5 aa5 Respiratory: Airway is patent Respiratory effort is even, unlabored, Respiratory aa5 pattern is regular, symmetrical, aa5 GI: Abdomen is round non-distended, Bowel sounds present X 4 quads. Abd is soft X aa5 4 quads Reports diarrhea, nausea, aa5 : Denies burning with urination, aa5 aa5 EENT: No signs and/or symptoms were reported regarding the EENT system. aa5 aa5 Derm: Skin is dry, Skin is normal, Skin temperature is warm aa5 aa5 Musculoskeletal: Range of motion: intact in all extremities, aa5 aa5
[2023-06-15 18:09] VITALS: BP 138/77; TEMP 97.7; O2SAT 98
== END 2023-06-15 13:50 | disposition home or self-care (01) ==
LOC: ER 09:25
DX: N20.2 Calculus of kidney with calculus of ureter (principal); F17.210 Nicotine dependence, cigarettes, uncomplicated; Z87.442 Personal history of urinary calculi
CPT/HCPCS: 36415; 74176; 76377; 80053; 81001; 81025; 83690; 85025; 96361; 96365; 96375; 99284; J2405; J3475; J7030